=== PATIENT | male | born 1965 | race Caucasian/White ===

== ENCOUNTER 2020-10-20 18:12 | Emergency (ER) | payer MEDICAID ==
[~2020-10-20] VITALS: Ht 165.1 cm; Wt 72.6 kg
[2020-10-20 18:15] VITALS: BP 137/95
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
[2020-10-20] MEDS ORDERED: MORPHINE SULFATE 4 MG/ML SYR IM ONE (18:55)
[2020-10-20] MEDS ORDERED: ONDANSETRON 4 MG ODT PO ONE (18:55)
--- NOTE | 2020-10-20 19:14 | NUR ---
REPORT RECEIVED FROM ROMY TERRELL FOR CONTINUITY OF CARE.
--- NOTE | 2020-10-20 19:16 | NUR ---
Pt report given to Francy STANTON. Transfer of care at this time.
--- NOTE | 2020-10-20 19:20 | NUR ---
PT LYING IN BED COMFORTABLY. FRIEND AT BEDSIDE. NO SIGNS OF DISTRESS NOTED AT THIS TIME.
--- NOTE | 2020-10-20 19:22 | NUR ---
LAB AT BEDSIDE.
[2020-10-20 19:54] LABS: BASOPHILS # (AUTO) 0.1 K/uL (0.00-0.22); BASOPHILS % (AUTO) 1.2 % (0.0-2.0); EOSINOPHILS # (AUTO) 0.5 K/uL (0-0.4); HEMATOCRIT 46.2 % (36-52); LYMPHOCYTES # (AUTO) 2.1 K/uL (2.0-11.5); LYMPHOCYTES % (AUTO) 25.4 % (20.5-51.1); MEAN CORPUSCULAR HEMOGLOBIN 33 pg (27-31); MEAN CORPUSCULAR HGB CONC 35 g/dL (33-37); MEAN CORPUSCULAR VOLUME 95.5 fL (80-94); MONOCYTES # (AUTO) 0.7 K/uL (0.8-1.0); MONOCYTES % (AUTO) 8.5 % (1.7-9.3); NEUTROPHILS # (AUTO) 4.9 K/uL (1.8-7.7); NEUTROPHILS % (AUTO) 58.9 % (42.2-75.2); PLATELET COUNT (AUTO) 198 K/uL (140-450); RED BLOOD CELL COUNT(AUTO) 4.84 MIL/uL (4.20-6.10); RED CELL DISTRIBUTION WIDTH 13.4 % (11.6-13.7); WHITE BLOOD COUNT (AUTO) 8.4 K/uL (4.8-10.8)
[2020-10-20 20:03] LABS: ANION GAP 14.8 (8-16); CARBON DIOXIDE 24.5 mmol/L (21-32); CREATININE 1.4 mg/dL (0.6-1.3); POTASSIUM 4.3 mmol/L (3.5-5.1)
[2020-10-20 20:47] LABS: APPEARANCE,URINE CLEAR (CLEAR); BILIRUBIN,URINE 1+ (NEGATIVE); BLOOD, URINE NEGATIVE (NEGATIVE); LEUKOCYTE ESTERASE ,URINE NEGATIVE (NEGATIVE); NITRITE, URINE NEGATIVE (NEGATIVE); PH,URINE 5.5 (5.0-9.0); UGLUCOSE NEGATIVE (NEGATIVE)
[2020-10-20 20:49] LABS: COLOR,URINE AMBER (YELLOW)
[2020-10-20] MEDS ORDERED: MOT200 PO (21:30)
[2020-10-20] MEDS ORDERED: ACET-8386 PO (21:30)
[2020-10-20] MEDS ORDERED: LID5T TP (21:30)
[2020-10-20 21:44] VITALS: BP 129/91
--- NOTE | 2020-10-20 21:44 | NUR ---
Patient discharged with v/s stable. Written and verbal after care instructions given and explained. Patient alert, oriented and verbalized understanding of instructions. Ambulatory with steady gait. All questions addressed prior to discharge. ID band removed. Patient advised to follow up with PMD. Rx of NORCO, MOTRIN, LIDODERM 5% PATCH given. Patient educated on indication of medication including possible reaction and side effects. Opportunity to ask questions provided and answered.
== END 2020-10-20 21:44 | disposition home or self-care (01) ==
LOC: MED 18:12
DX: S20.212A Contusion of left front wall of thorax, initial encounter (principal); S39.012A Strain of muscle, fascia and tendon of lower back, initial encounter; R10.9 Unspecified abdominal pain; Y04.0XXA Assault by unarmed brawl or fight, initial encounter; Y93.89 Activity, other specified; Y92.89 Other specified places as the place of occurrence of the external cause; Y99.8 Other external cause status
CPT/HCPCS: 36415; 71250; 74176; 80048; 81003; 85025; 96372; 99285; J2270; Q0162